=== PATIENT | female | born 1985 | race Caucasian/White ===

== ENCOUNTER 2017-05-21 05:39 | Day surgery (SDC) | payer OTHER ==
[~2017-05-21] VITALS: Ht 170.2 cm; Wt 97.5 kg
[~2017-05-21 05:39] MED LIST: AMRIX15 MG PO; AMRIX30 MG PO; ATIVAN0.5 MG PO; B-12 KIT1000 MCG/1 IM; BACLOFEN10 MG PO; CYMBALTA60 MG PO; ERGOCALCIF50000 UNIT PO; FISH OIL 1,0001 EA10 PO; FLEXERIL10 MG PO; HYDROCODON-ACE1 EAC7 PO; LOESTRIN1 EACH PO; METOPROLOL TART25 MG PO; MICROGESTIN1 EAC1 PO; Motrin PO; NEURONTIN400 MG PO; NEURONTIN800 MG PO; OMEPRAZOLE20 MG PO; PREDNISONE20 MG PO; PRENATAL TABLE1 EAC3 PO; SERTRALINE HCL25 MG PO; TOPIRAMATE50 MG PO; TRAMADOL HCL E200 M1 PO; TYLENOL EXTRA500 MG PO; VALIUM5 MG PO; VITAMIN C500 M1 PO; VITAMIN D1000 INTUN PO; VITAMIN D31000 UNIT PO; VYVANSE40 MG PO; ZOLOFT100 MG PO; ZOLOFT50 MG PO; ZYRTEC10 M3 PO
[2017-05-21 06:28] LABS: CHLORIDE 113 mEq/L (99-109); SODIUM 138 mEq/L (136-147)
[2017-05-21 06:29] VITALS: BP 122/61
[2017-05-21 06:29] LABS: GLUCOSE 105 mg/dL (70-99)
[2017-05-21 06:31] LABS: ANION GAP 4 MEQ/L (2-14)
[2017-05-21 06:33] LABS: GFR ESTIMATE (CALCULATED) > 59 mL/min/
[2017-05-21 06:34] LABS: UREA NITROGEN (BUN) 12 mg/dL (9-23)
[2017-05-21 07:10] LABS: INTERNAL CONTROL VALID? NO
[2017-05-21] MEDS ORDERED: MOTRIN600 MG PO (08:58)
[2017-05-21] MEDS ORDERED: NORCO 5/3251 TABLET PO (08:58)
[2017-05-21 09:40] VITALS: BP 107/68
[2017-05-21 11:13] VITALS: BP 96/60
== END 2017-05-21 11:13 | disposition home or self-care (01) ==
LOC: SDC 05:39
PROVIDERS: Surgery
DX: I87.8 Other specified disorders of veins (principal); I49.8 Other specified cardiac arrhythmias; Q79.6 Ehlers-Danlos syndromes; K21.9 Gastro-esophageal reflux disease without esophagitis; E66.9 Obesity, unspecified; Z68.33 Body mass index [BMI] 33.0-33.9, adult; Z83.3 Family history of diabetes mellitus; Z82.49 Family history of ischemic heart disease and other diseases of the circulatory system; Z80.8 Family history of malignant neoplasm of other organs or systems
CPT/HCPCS: 71010; 80048; 84703; C1751; J0131; J0690; J2250; J3010